=== PATIENT | female | born 1975 | race Caucasian/White ===

== ENCOUNTER 2020-07-08 11:58 | Inpatient (IN) ==
[2020-07-08 12:05] VITALS: BMI 24.0
[2020-07-08 16:15] LABS: BASOPHILS # (AUTO) 0.1 X10^3/uL (0.0-0.1); BASOPHILS % (AUTO) 0.9 % (0.2-1.0); EOSINOPHILS % (AUTO) 0.7 % (0.9-2.9); HEMATOCRIT 22.7 % (36.0-47.0); LYMPHOCYTES # (AUTO) 1.8 X10^3/uL (1.3-2.9); MEAN CORPUSCULAR HEMOGLOBIN 35.5 pg (27.0-34.0); MEAN CORPUSCULAR HGB CONC 35.4 g/dL (33.0-35.0); MEAN CORPUSCULAR VOLUME 100.5 fL (80.0-100.0); MONOCYTES # (AUTO) 0.5 x10^3/uL (0.3-0.8); MONOCYTES % (AUTO) 7.9 % (0.0-13.0); NEUTROPHILS # (AUTO) 3.9 x10^3/uL (2.2-4.8); NEUTROPHILS % (AUTO) 61.5 % (42.0-75.0); PLATELET COUNT 205 X10^3/uL (150.0-450.0); RED BLOOD COUNT 2.26 X10^6/uL (3.5-5.4); WHITE BLOOD COUNT 6.3 X10^3/uL (3.6-10.0)
[2020-07-08] MEDS ORDERED: NS 1000 ML 1,000 ML IV ONE (16:17)
[2020-07-08] MEDS ORDERED: NS 1000 ML 1,000 ML ONE (16:18)
[2020-07-08 16:22] LABS: PLATELET MORPHOLOGY COMMENT NORMAL (NORMAL)
[2020-07-08 16:28] LABS: ALANINE AMINOTRANSFERASE 33 Units/L (12-78); ALBUMIN 1.5 g/dL (3.4-5.0); ALKALINE PHOSPHATASE 235 Units/L (46-116); ASPARTATE AMINO TRANSFERASE 100 Units/L (15-37); BLOOD UREA NITROGEN 5 mg/dL (7-18); CALCIUM 8.1 mg/dL (8.5-10.1); COR CA(FOR HYPOALB) 10.1 mg/dL (8.5-10.1); CREATININE 0.85 mg/dL (0.55-1.02); TOTAL PROTEIN 6.2 g/dL (6.4-8.2); eGFR NON BLACK RACES > 60 (>60)
[2020-07-08 16:30] LABS: SODIUM 120 mmol/L (136-145)
[2020-07-08 16:31] LABS: CARBON DIOXIDE 41.1 mmol/L (21-32); CHLORIDE 78 mmol/L (98-107)
--- NOTE | 2020-07-08 16:31 | CT ---
EXAM: HEAD CT WITHOUT INTRAVENOUS CONTRASTHISTORY: Altered mental status. CVA. .TECHNIQUE: Spiral axial CT images are obtained through the brain without the administration of intravenous contrast. Additional sagittal and coronal reformatted images are reconstructed.DOSIMETRY: Total DLP 1155.2 mGycm; CTDI 67.4 mGyCOMPARISON: None available.FINDINGS:The centrum semiovale, basal ganglia, cerebellum, and brainstem are grossly unremarkable for a noncontrast CT scan.There is no acute intracranial hemorrhage, discernible acute infarction, mass lesion, midline shift, or hydrocephalus seen. No extra-axial mass or abnormal fluid collection is seen.The calvarium is intact. The partially imaged paranasal sinuses, middle ear cavities, and mastoid air cells are clear.IMPRESSION:1. No intracranial hemorrhage, discernible acute infarction, mass lesions, midline shift, mass effect or hydrocephalus seen.2. Consider followup evaluation with MRI /MRA imaging for further assessment as clinically warranted.Electronically signed by: Katherine Tan (Jul 08, 2020 16:29:22)
[2020-07-08 16:43] LABS: BILIRUBIN,URINE NEGATIVE (NEGATIVE); BLOOD/HEMOGLOBIN,URINE 1+ (NEGATIVE); GLUCOSE, URINE NEGATIVE (NEGATIVE); KETONES,URINE NEGATIVE (NEGATIVE); LEUKOCYTE ESTERASE ,URINE 2+ (NEGATIVE); NITRITES,URINE POSITIVE (NEGATIVE); PROTEIN,URINE NEGATIVE (NEGATIVE); UROBILINOGEN,URINE 1+ (NORMAL)
[2020-07-08 16:45] LABS: APPEARANCE,URINE HAZY (CLEAR); COLOR,URINE YELLOW (YELLOW)
[2020-07-08 17:01] LABS: BACTERIA,URINE 2+ /HPF (NEGATIVE); SQUAMOUS EPITHELIAL CELL,UR FEW /HPF (NEGATIVE)
[2020-07-08 17:02] LABS: AMORPHOUS SEDIMENT,UR TRACE /HPF (NEGATIVE); MUCUS,URINE RARE /HPF (NEGATIVE); YEAST,URINE RARE /HPF (NEGATIVE)
--- NOTE | 2020-07-08 17:36 | DR.GENAD ---
HPI Time Seen Time Seen by Provider: 07/08/20 12:28 PCP Primary Care Physician: NORMA HPI Comment HPI Comment: Patient sent by family for falls, and AMS. Patient is awake but non-coherent, and unable to contribute to history. Complaint/Symptoms Chief Complaint:: FAMILY REPORTS PATIENT HAS BEEN FALLING AT HOME, HAS ABDOMINAL SWELLING, AND CONFUSION ONSET "MONTHS AGO". PATIENT REPORTS BEING SEEN IN ER ONCE FOR SAME COMPLAINT. COVID-19 Coronavirus risk:travel/contact w/high risk person: No Has patient experienced Coronavirus symptoms: No Source History Provided: Patient and Significant Other Mode of Arrival Mode of Arrival: Wheelchair Timing Onset of Chief Complaint: 05/09/20 PMH PMH Past Medical History: Yes Past Medical History: CVA Past Surgical History: Yes Surgical History: Family History History of Family Medical Conditions: Yes Family Medical History: Cancer Social History Alcohol Use: DAILY Do you use any recreational Drugs:: No Lives With: Spouse Lives Where: Home Travel Risk Coronavirus risk:travel/contact w/high risk person: No Has patient experienced Coronavirus symptoms: No Infectious screening In the last 2 months have you had wt loss of >10#?: NO Have you had fever, night sweats or hemotysis?: No Have you traveled outside the country in the last 6 months?: No Isolation: Standard ROS Review of Systems Unable to Obtain Due To: Altered mental status PE Vital Signs Vitals: Temperature 98.3 F Pulse Rate 120 Respiratory Rate 18 Blood Pressure [Left Arm] 110/65 Blood Pressure 100/70 O2 Sat by Pulse Oximetry 97 General Limitations: Altered Mental Status General Appearance: Alert and Other (confused) Head Head Exam: Normal Inspection and Atraumatic Eyes Eye exam: Normal Appearance and EOMI ENT ENT Exam: Normal Exam Neck Neck Exam: Normal Inspection and Trachea Midline Chest Chest Inspection: Normal Inspection and Symmetric Chest Wall Rise Respiratory Respiratory Exam: Normal Lung Sounds Bilat Respiratory Exam: Bilateral: Clear to Auscultation Cardiovascular Cardiovascular Exam: Regular Rate, Normal Rhythm and Normal Heart Sounds Abdominal Exam Abdominal Exam: Normal Inspection, Normal Bowel Sounds and Soft Extremities Extremities Exam: Normal Inspection and Full ROM Neurologic Neurological Exam: Other (alert and disoriented) Skin Skin Exam: Warm, Dry and Intact COURSE Treatment Treatment: started IV K+ replacement. Consultation Consultation Comments: spoke with Dr. Hinkle who agrees to admit patient for evaluation. ROR Labs Reviewed Laboratory Results Reviewed?: Yes Result Diagrams: 07/08/20 16:09 07/08/20 16:09 Laboratory: WBC 6.3 X10^3/uL (3.6-10.0) 07/08/20 16:09 RBC 2.26 X10^6/uL (3.5-5.4) L 07/08/20 16:09 Hgb 8.0 g/dL (12.0-16.0) L 07/08/20 16:09 Hct 22.7 % (36.0-47.0) L 07/08/20 16:09 MCV 100.5 fL (80.0-100.0) H 07/08/20 16:09 MCH 35.5 pg (27.0-34.0) H 07/08/20 16:09 MCHC 35.4 g/dL (33.0-35.0) H 07/08/20 16:09 RDW 18.0 % (11.6-16.5) H 07/08/20 16:09 Plt Count 205 X10^3/uL (150.0-450.0) 07/08/20 16:09 Plt Count Comment Adequate (ADEQUATE) 07/08/20 16:09 MPV 8.0 fL (7.4-11.0) 07/08/20 16:09 Neut % (Auto) 61.5 % (42.0-75.0) 07/08/20 16:09 Lymph % (Auto) 29.0 % (21.0-51.0) 07/08/20 16:09 [place] % (Auto) 7.9 % (0.0-13.0) 07/08/20 16:09 Eos % (Auto) 0.7 % (0.9-2.9) L 07/08/20 16:09 Baso % (Auto) 0.9 % (0.2-1.0) 07/08/20 16:09 Neut # (Auto) 3.9 x10^3/uL (2.2-4.8) 07/08/20 16:09 Lymph # (Auto) 1.8 X10^3/uL (1.3-2.9) 07/08/20 16:09 [place] # (Auto) 0.5 x10^3/uL (0.3-0.8) 07/08/20 16:09 Eos # (Auto) 0.0 x10^3/uL (0.0-0.2) 07/08/20 16:09 Baso # (Auto) 0.1 X10^3/uL (0.0-0.1) 07/08/20 16:09 Absolute Nucleated RBC 0.0 /100WBC 07/08/20 16:09 Total Counted 100 07/08/20 16:09 Neutrophils % (Manual) 70 % (39-76) 07/08/20 16:09 Band Neutrophils % Cancelled 07/08/20 15:41 Lymphocytes % (Manual) 24 % (13-43) 07/08/20 16:09 Monocytes % (Manual) 5 % (4-9) 07/08/20 16:09 Eosinophils % (Manual) 1 % (0-6) 07/08/20 16:09 Basophils % (Manual) Cancelled 07/08/20 15:41 Metamyelocytes % Cancelled 07/08/20 15:41 Myelocytes % Cancelled 07/08/20 15:41 Promyelocytes % Cancelled 07/08/20 15:41 Nucleated RBCs Cancelled 07/08/20 15:41 Atypical Lymphocytes Cancelled 07/08/20 15:41 Blast Cells Cancelled 07/08/20 15:41 Smudge Cells Cancelled 07/08/20 15:41 Toxic Granulation Cancelled 07/08/20 15:41 Dohle Bodies Cancelled 07/08/20 15:41 Helen Rods Cancelled 07/08/20 15:41 Plt Clumps, EDTA Cancelled 07/08/20 15:41 Giant Platelets Cancelled 07/08/20 15:41 Plt Morphology Comment Normal (NORMAL) 07/08/20 16:09 RBC Morphology Normal (NORMAL) 07/08/20 16:09 Dimorphic RBCs Cancelled 07/08/20 15:41 Polychromasia Cancelled 07/08/20 15:41 Hypochromasia Cancelled 07/08/20 15:41 Poikilocytosis Cancelled 07/08/20 15:41 Basophilic Stippling Cancelled 07/08/20 15:41 Anisocytosis Cancelled 07/08/20 15:41 Microcytosis Cancelled 07/08/20 15:41 Macrocytosis Cancelled 07/08/20 15:41 Spherocytes Cancelled 07/08/20 15:41 Pappenheimer Bodies Cancelled 07/08/20 15:41 Sickle Cells Cancelled 07/08/20 15:41 Target Cells Cancelled 07/08/20 15:41 Tear Drop Cells Cancelled 07/08/20 15:41 Ovalocytes Cancelled 07/08/20 15:41 Stomatocytes Cancelled 07/08/20 15:41 Helmet Cells Cancelled 07/08/20 15:41 Crowder-Earlimart Bodies Cancelled 07/08/20 15:41 [place] Rings Cancelled 07/08/20 15:41 Shannon Cells Cancelled 07/08/20 15:41 Crenated Cell Cancelled 07/08/20 15:41 Acanthocytes (Spur) Cancelled 07/08/20 15:41 Rouleaux Cancelled 07/08/20 15:41 Schistocytes Cancelled 07/08/20 15:41 Sodium 120 mmol/L (136-145) L* 07/08/20 16:09 Corrected Sodium TNP 07/08/20 16:09 Potassium 1.9 mmol/L (3.5-5.1) L* 07/08/20 16:09 Chloride 78 mmol/L (98-107) L* 07/08/20 16:09 Carbon Dioxide 41.1 mmol/L (21-32) H* 07/08/20 16:09 BUN 5 mg/dL (7-18) L 07/08/20 16:09 Creatinine 0.85 mg/dL (0.55-1.02) 07/08/20 16:09 Est GFR (MDRD) Af Amer > 60 (>60) 07/08/20 16:09 Est GFR (MDRD) Non-Af > 60 (>60) 07/08/20 16:09 Glucose 100 mg/dL (65-99) H 07/08/20 16:09 Calcium 8.1 mg/dL (8.5-10.1) L 07/08/20 16:09 Corrected Calcium 10.1 mg/dL (8.5-10.1) 07/08/20 16:09 Total Bilirubin 1.40 mg/dL (0.2-1.0) H 07/08/20 16:09 AST 100 Units/L (15-37) H 07/08/20 16:09 ALT 33 Units/L (12-78) 07/08/20 16:09 Alkaline Phosphatase 235 Units/L (46-116) H 07/08/20 16:09 Total Protein 6.2 g/dL (6.4-8.2) L 07/08/20 16:09 Albumin 1.5 g/dL (3.4-5.0) L 07/08/20 16:09 Globulin 4.7 g/dL (2.5-4.5) H 07/08/20 16:09 Albumin/Globulin Ratio 0.3 Ratio (1.1-2.1) L 07/08/20 16:09 Specimen Type Clean catch urine 07/08/20 16:36 Urine Color Yellow (YELLOW) 07/08/20 16:36 Urine Appearance Hazy (CLEAR) 07/08/20 16:36 Urine pH 7.0 (5.0 - 8.0) 07/08/20 16:36 Ur Specific [place] 1.005 (1.000-1.030) 07/08/20 16:36 Urine Protein Negative (NEGATIVE) 07/08/20 16:36 Urine Glucose (UA) Negative (NEGATIVE) 07/08/20 16:36 Urine Ketones Negative (NEGATIVE) 07/08/20 16:36 Urine Occult Blood 1+ (NEGATIVE) 07/08/20 16:36 Urine Nitrite Positive (NEGATIVE) 07/08/20 16:36 Urine Bilirubin Negative (NEGATIVE) 07/08/20 16:36 Urine Urobilinogen 1+ (NORMAL) 07/08/20 16:36 Ur Leukocyte Esterase 2+ (NEGATIVE) 07/08/20 16:36 Urine RBC 5-10 /HPF (0-3) A 07/08/20 16:36 Urine WBC 10-20 /HPF (0-5) A 07/08/20 16:36 Ur Squamous Epith Cells Few /HPF (NEGATIVE) 07/08/20 16:36 Amorphous Sediment Trace /HPF (NEGATIVE) 07/08/20 16:36 Urine Bacteria 2+ /HPF (NEGATIVE) 07/08/20 16:36 Urine Mucus Rare /HPF (NEGATIVE) 07/08/20 16:36 Urine Yeast Rare /HPF (NEGATIVE) 07/08/20 16:36 Ur Culture Indicated? Yes/culture set up 07/08/20 16:36 XRAY X-ray Results: EXAM: HEAD CT WITHOUT INTRAVENOUS CONTRAST HISTORY: Altered mental status. CVA. . TECHNIQUE: Spiral axial CT images are obtained through the brain without the administration of intravenous contrast. Additional sagittal and coronal reformatted images are reconstructed. DOSIMETRY: Total DLP 1155.2 mGycm; CTDI 67.4 mGy COMPARISON: None available. FINDINGS: The centrum semiovale, basal ganglia, cerebellum, and brainstem are grossly unremarkable for a noncontrast CT scan. There is no acute intracranial hemorrhage, discernible acute infarction, mass lesion, midline shift, or hydrocephalus seen. No extra-axial mass or abnormal fluid collection is seen. The calvarium is intact. The partially imaged paranasal sinuses, middle ear cavities, and mastoid air cells are clear. IMPRESSION: 1. No intracranial hemorrhage, discernible acute infarction, mass lesions, midline shift, mass effect or hydrocephalus seen. 2. Consider followup evaluation with MRI /MRA imaging for further assessment as clinically warranted. Electronically signed by: Katherine Tan (Jul 08, 2020 16:29:22) Opioid Opioid Risk Tool Age (Abdiaziz box if 16-45): Yes History of Preadolescent Sexual Abuse: No Total: 1 Total Score Risk Category: Low Risk Copyright: Rodney MCCARTY predicting aberrant behaviors Diagnosis Discharge Problem: Acute hyponatremia, Acute hypokalemia, Acute alteration in mental status UTI (urinary tract infection) Qualifiers: Urinary tract infection type: site unspecified Hematuria presence: without hematuria Qualified Code(s): N39.0 - Urinary tract infection, site not specified
[2020-07-08] MEDS ORDERED: LEVAQUIN PREMIX IV 750 MG 750 MG/150 ML BAG IV ONE ×2 (17:38→17:53)
[2020-07-08] MEDS ORDERED: NS + KCL 20 MEQ/L 1,000 ML IV ONE (17:53)
[2020-07-08] MEDS: NS + KCL 20 MEQ/L 1,000 ML IV SCH (18:02)
[2020-07-08] MEDS ORDERED: POTASSIUM CHLORIDE LIQ 20 MEQ UDC PO PRN (23:31)
[2020-07-08] MEDS ORDERED: K-RIDER 10 MEQ/NS 100 ML 10 MEQ/100 ML BAG IV PRN (23:31)
[2020-07-08] MEDS ORDERED: POTASSIUM CHL 60 MEQ/NS 0.45% 500 ML IV PRN (23:31)
[2020-07-08] MEDS ORDERED: POTASSIUM CHL 40 MEQ/NS 0.45% 500 ML IV PRN (23:31)
[2020-07-08] MEDS ORDERED: K-DUR TAB 20 MEQ PO PRN (23:31)
[2020-07-08] MEDS ORDERED: MICRO K EXTEN CAP 10 MEQ PO PRN (23:31)
[2020-07-09] MEDS: KLOR-CON PO PRN ×2 (00:57→20:10)
[2020-07-09] MEDS: MAGNESIUM SULFATE 1 GRAM/100 mL PREMIX 1 GM/100 ML BAG IV PRN ×3 (01:00→05:10)
[2020-07-09 06:53] LABS: BASOPHILS # (AUTO) 0.1 X10^3/uL (0.0-0.1); BASOPHILS % (AUTO) 0.8 % (0.2-1.0); EOSINOPHILS % (AUTO) 0.3 % (0.9-2.9); HEMOGLOBIN 7.6 g/dL (12.0-16.0); LYMPHOCYTES # (AUTO) 1.6 X10^3/uL (1.3-2.9); LYMPHOCYTES % (AUTO) 16.9 % (21.0-51.0); MEAN CORPUSCULAR HEMOGLOBIN 35.4 pg (27.0-34.0); MEAN CORPUSCULAR HGB CONC 34.8 g/dL (33.0-35.0); MEAN CORPUSCULAR VOLUME 101.7 fL (80.0-100.0); MEAN PLATELET VOLUME 8.8 fL (7.4-11.0); MONOCYTES # (AUTO) 0.7 x10^3/uL (0.3-0.8); MONOCYTES % (AUTO) 6.9 % (0.0-13.0); NEUTROPHILS # (AUTO) 7.3 x10^3/uL (2.2-4.8); NEUTROPHILS % (AUTO) 75.1 % (42.0-75.0); PLATELET COUNT 205 X10^3/uL (150.0-450.0); RED BLOOD COUNT 2.16 X10^6/uL (3.5-5.4); RED CELL DISTRIBUTION WIDTH 18.1 % (11.6-16.5); WHITE BLOOD COUNT 9.7 X10^3/uL (3.6-10.0)
[2020-07-09 07:00] LABS: ALANINE AMINOTRANSFERASE 30 Units/L (12-78); ALBUMIN 1.3 g/dL (3.4-5.0); ALKALINE PHOSPHATASE 206 Units/L (46-116); ASPARTATE AMINO TRANSFERASE 90 Units/L (15-37); BLOOD UREA NITROGEN 4 mg/dL (7-18); CALCIUM 7.9 mg/dL (8.5-10.1); CARBON DIOXIDE 38.5 mmol/L (21-32); CHLORIDE 83 mmol/L (98-107); COR CA(FOR HYPOALB) 10.1 mg/dL (8.5-10.1); TOTAL PROTEIN 5.8 g/dL (6.4-8.2); eGFR NON BLACK RACES > 60 (>60)
[2020-07-09 07:04] LABS: SODIUM 122 mmol/L (136-145)
[2020-07-09] MEDS: NS + KCL 20 MEQ/L 1,000 ML IV SCH ×2 (08:40→21:29)
[2020-07-09] MEDS ORDERED: [UNRECOGNIZED DRUG - OTHER] IV SCH ×4 (10:00)
[2020-07-09] MEDS ORDERED: ALBUMIN HUMAN 25%- 100 ML 100 ML IV SCH (10:00)
[2020-07-09] MEDS ORDERED: PHENOBARBITAL SODIUM IV SCH ×4 (10:00)
[2020-07-09] MEDS ORDERED: NS IV SCH ×4 (10:00)
[2020-07-09] MEDS ORDERED: INVANZ INJ 1 GM VIAL 1 GM in NS 100 ML IV + SPIKE MINIBAG* 100 ML IV SCH (10:00)
[2020-07-09] MEDS: LIBRIUM PO SCH ×3 (10:53→22:24)
--- NOTE | 2020-07-09 11:17 | DR.H&P ---
H&P - History & Physical for Day of: H&P Date: 07/08/20 - Chief Complaint Chief Complaint: WEAKNESS, FALLS, CONFUSION, ABDOMINAL SWELLING - History of Present Illness History of Present Illness: IS A 45 YEAR OLD WHITE FEMALE. SHE PRE SENTED TO THE ER WITH FAMILY REPORTING THAT PATIENT HAS HAD SEVERE WEAKNESS, CONFUSION, RECURRENT FALLS AT HOME, AND ABDOMINAL SWELLING. THEY REPORT THAT SYMPTOMS HAVE BEEN PRESENT FOR A FEW MONTHS, BUT HAVE GOTTEN WORSE OVER THE PAST 2-3 DAYS. CHICHI REPORTS THAT SHE HAS BEEN IN A LETHARGIC STATE SINCE YESTERDAY. ON ARRIVAL TO THE ER, PATIENT WAS NOTED TO BE AWAKE, BUT NON- COHERENT. SHE WAS UNABLE TO CONTRIBUTE TO HISTORY. HER PMH INCLUDES CVA AND ALCOHOL ABUSE. PATIENTS FAMILY REPORTS THAT SHE DRINKS ABOUT 6-12 BEER/DAY AND LIQUOR. ON ARRIVAL TO THE ER, VITALS WERE 98.3-120-18-97%-100/70. LABS WERE OBTAINED. ABNORMAL LAB VALUES INCLUDE THE FOLLOWING: RBC 2.26, HGB 8.0, HCT 22.7, SODIUM 120, POTASSIUM 1.9, CHLORIDE 78, CARBON DIOXIDE 41.1, BUN 5, GLUCOSE 100, CALCIUM 8.1, MAGNESIUM 1.4, TOTAL BILI 1.40, AST 100, ALK PHOS 235, TOTAL PROTEIN 6.2, ALBUMIN 1.5, GLOBULIN 4.7. URINALYSIS REVEALED: RBC 5-10, WBC 10-20, BACTERIA 2+, LEUKOCYTES 2+, NITRITE POSITIVE, OCCULT BLOOD, YEAST RARE. COVID-19, INFLUENZA, AND RSV WERE NEGATIVE. A URINE CULTURE WAS SET UP. AN EKG WAS OBTAINED AND REVEALED: SINUS TACHYCARDIA WITH HR 106. A BRAIN CT WAS OBTAINED AND REVEALED: No intracranial hemorrhage, discernible acute infarction, mass lesions, midline shift, mass effect or hydrocephalus seen. IN THE ER, SHE WAS GIVEN A NORMAL SALINE BOLUS, LEVAQUIN 750MG IV X 1 DOSE. SHE WAS ADMITTED TO THE HOSPITAL FOR FURTHER EVALUATION AND TREATMENT OF HYPONATREMIA, HYPOKALEMIA, UTI, AND AMS. SHE WAS STARTED ON NORMAL SALINE WITH 20MEQ KCL AT 80 ML/HR, ALBUMIN 25% IV DAILY, LIBRIUM 25MG PO TID, INVANZ 1G IV DAILY, THE POTASSIUM AND MAGNESIUM PROTOCOL, AND A BANANA BAG WITH SODIUM CHOLORIDE, PHENOBARBITAL, MAGNESIUM SULFATE, AND THIAMINE AT 50 ML/HR. OTHERWISE, WE PLAN TO FOLLOW UP WITH AM LABS AND CONTINUE TO MONITOR. TIME SPENT ON CLINICAL ASSESSMENT, REVIEWING LABS AND IMAGING, DECISION MAKING, AND DOCUMENTATION GREATER THAN 75 MINUTES. - Past Medical History Past Medical History: CVA Additional Medical History: ALCOHOL ABUSE - Past Surgical History Surgical History: - Family History Family Medical History: Cancer - Social History Does patient currently use any type of tobacco product: Yes Have you used tobacco products in the last 12 months: Yes Type of Tobacco Use: Cigarettes Alcohol Use: DAILY - Medications Home Medications: No Known Drug Allergies Allergy (Verified 12/25/18 18:07) CONTINUE taking the following medications NK 07/08/20 [History] - Review of Systems Constitutional: Weakness Eyes: No Symptoms Reported ENT: No Symptoms Reported Respiratory: No Symptoms Reported Cardiovascular: No Symptoms Reported Gastrointestinal: See HPI, Other (ABDOMINAL DISTENTION ) Genitourinary: No Symptoms Reported Musculoskeletal: No Symptoms Reported Skin: No Symptoms Reported Neurological: Weakness, Confusion - Physical Exam Vital Signs: Temperature 99.1 F Pulse Rate [Bilateral Radial] 106 Pulse Rate 120 Respiratory Rate 20 Blood Pressure [Left Arm] 121/75 Blood Pressure 109/76 O2 Sat by Pulse Oximetry 99 Oriented: Unable to test Eyes: Normal Ear: Normal Nose: Normal Throat: Normal Respiratory: Diminished Throughout Cardiovascular: Tachycardia : Normal Auscultation: Bowel Sounds: Normal Palpation: Normal Tenderness: Other (ABDOMEN DISTENDED ) Skin: Normal Musculoskeletal: Normal Psychiatric: Other (LETHARGIC ) Mood Description: Flat Affect: Flat Speech Pattern: Unclear - Assessment/Plan (1) Acute hyponatremia Status: Acute Plan: ADMIT, NORMAL SALINE WITH 20MEQ KCL AT 80 ML/HR, ALBUMIN 25% IV DAILY, LIBRIUM 25MG PO TID, INVANZ 1G IV DAILY, THE POTASSIUM AND MAGNESIUM PROTOCOL, AND A BANANA BAG WITH SODIUM CHOLORIDE, PHENOBARBITAL, MAGNESIUM SULFATE, AND THIAMINE AT 50 ML/HR. (2) Acute hypokalemia Status: Acute (3) UTI (urinary tract infection) Qualifiers: Urinary tract infection type: site unspecified Hematuria presence: without hematuria Qualified Code(s): N39.0 - Urinary tract infection, site not specified Status: Acute (4) Acute alteration in mental status Status: Acute - Allergies Allergies/Adverse Reactions: Allergies Allergy/AdvReac Type Severity Reaction Status Date / Time No Known Drug Allergies Allergy Verified 12/25/18 18:07
[2020-07-09 11:41] LABS: AMYLASE 20 Units/L (25-115); LIPASE 88 Units/L (73-393)
[2020-07-09 20:33] VITALS: BP 114/80
== END 2020-07-09 22:20 | disposition left against medical advice (07) | DRG 690 ==
LOC: ER 11:58 → MED/SURG 17:38
PROVIDERS: ADMIT Internal Medicine; ATTEND Internal Medicine
DX: Z86.73 Personal history of transient ischemic attack (TIA), and cerebral infarction without residual deficits; E87.6 Hypokalemia; B96.29 Other Escherichia coli [E. coli] as the cause of diseases classified elsewhere; R29.6 Repeated falls; N39.0 Urinary tract infection, site not specified; Z20.822 Contact with and (suspected) exposure to COVID-19; R94.31 Abnormal electrocardiogram [ECG] [EKG]; Z53.29 Procedure and treatment not carried out because of patient's decision for other reasons; R41.82 Altered mental status, unspecified; E87.1 Hypo-osmolality and hyponatremia